=== PATIENT | female | born 1950 | race Caucasian/White ===

== ENCOUNTER 2020-06-04 14:49 | Observation (INO) ==
[2020-06-04] MEDS ORDERED: MECLIZINE 25 MG TABLET PO STA (18:29)
[2020-06-04] MEDS ORDERED: traMADol 50 MG TABLET PO STA (19:01)
[2020-06-04 19:08] LABS: Basophils # 0.1 10*3/uL (0.0-0.2); Basophils % 0.8 % (0.0-0.8); Eosinophils # 0.4 10*3/uL (0.0-0.87); Eosinophils % 4.9 % (0.00-10.9); Hematocrit 36.3 VOL% (35.7-47.0); Hemoglobin 11.9 GM/DL (12.0-16.0); Immature Granulocytes % 0.5 %; Immature Granulocytes Absolute 0.04 #; Lymphocytes % 23.4 % (21.3-54.2); Mean Corpuscular HGB Conc 32.8 GM/DL (32-36); Mean Corpuscular Volume 89.2 FL (87-102); Mean Platelet Volume 10.4 FL (9.6-12.0); Neutrophils % 62.4 % (38.7-73.9); Platelet Count 258 T/CUMM (130-400); Red Blood Count 4.07 MC/CUMM (3.8-5.5); Red Cell Distribution Width 14.5 % (9.3-17.3); White Blood Count 8.4 T/CUMM (4-12)
[2020-06-04 19:21] LABS: Alanine Aminotransferase 27 U/L (13-56); Albumin 3.6 G/DL (3.4-5.0); Alkaline Phosphatase 129 U/L (45-117); Aspartate Amino Transferase 33 U/L (0-37); Blood Urea Nitrogen 11 MG/DL (7-18); Calcium 9.3 MG/DL (8.5-10.1); Carbon Dioxide 28 MMOL/L (21-32); Estimated Glom Filtration Rate 90 ML/MIN; Glucose 120 MG/DL (74-106); Osmolality,Calculated 269.1 MOS/KG (273-304); Potassium 3.7 MMOL/L (3.5-5.1); Sodium 135 MMOL/L (136-145); Total Protein 7.6 G/DL (6.4-8.2); Troponin I < 0.015 NG/ML (0.00-0.045)
[2020-06-04 19:23] LABS: Barbiturates Screen,Urine Negative (Negative); Benzodiazepines Screen,Urine Negative (Negative); Cannabinoid Screen,Urine Negative (Negative); Opiate Screen,Urine Negative (Negative); Phencyclidine Screen,Urine Negative (Negative)
[2020-06-04 19:24] LABS: Bacteria,Urine Occasional /HPF (Few); Bilirubin,Urine Negative (Negative); Blood, Urine Small mg/dL (Negative); Glucose,Urine (UA) Negative (Negative); Ketones,Urine Negative (Negative); Nitrite,Urine Negative (Negative); Protein,Urine Negative; RBC,Urine 3 /HPF (0-4); Squamous Epithelial Cell,Urine Occasional /HPF (0-10); Urine Appearance Slightly Hazy (Clear); Urine Color Straw (Yellow); Urine Specific Gravity 1.004 (1.001-1.035); Urine Urobilinogen < 2.0 EU/DL (0.2-1.0)
[2020-06-04] MEDS ORDERED: cefTRIAXone 1,000 MG in SODIUM CHLORIDE 0.9% 100 ML IV STA (19:40)
[2020-06-04] MEDS ORDERED: hydrALAZINE 20 MG/1 ML VIAL IV STA (19:45)
[2020-06-04] MEDS ORDERED: HYDROmorphone 2 MG/1 ML VIAL IV STA (21:35)
[2020-06-04] MEDS ORDERED: DEXTROSE 50% 25 GM/50 ML VIAL IV PRN (21:49)
[2020-06-04] MEDS ORDERED: ONDANSETRON 4 MG/2 ML VIAL IV PRN (21:49)
[2020-06-04] MEDS ORDERED: GLUCAGON 1 MG VIAL IM PRN (21:49)
[2020-06-04] MEDS ORDERED: hydrALAZINE 20 MG/1 ML VIAL IV PRN (21:49)
[2020-06-04 23:53] LABS: Risk Ratio 5.08; Thyroid Stimulating Hormone 2.65 uIU/ml (0.358-3.74)
[2020-06-05] MEDS: carvediloL 25 MG TABLET PO SCH ×3 (01:58→21:34)
[2020-06-05] MEDS ORDERED: cloNIDine 0.1 MG TABLET PO PRN (08:02)
[2020-06-05] MEDS: INSULIN REGULAR 100 UNIT/ML SUBCUT SCH ×4 (09:08→21:34)
[2020-06-05] MEDS: OLMESARTAN 20 MG TABLET PO SCH (09:12)
[2020-06-05] MEDS ORDERED: busPIRone 5 MG TABLET PO SCH (12:30)
[2020-06-05] MEDS: HydrOXYzine PAMOATE 25 MG CAPSULE PO SCH ×3 (13:34→21:34)
[2020-06-05 14:07] LABS: Troponin I < 0.015 NG/ML (0.00-0.045)
[2020-06-05] MEDS ORDERED: ASPIRIN EC 81 MG TABLET PO SCH (21:00)
[2020-06-05] MEDS ORDERED: cefTRIAXone 1,000 MG in SODIUM CHLORIDE 0.9% 100 ML IV SCH (21:00)
[2020-06-06 05:16] LABS: Basophils # 0.1 10*3/uL (0.0-0.2); Basophils % 0.9 % (0.0-0.8); Eosinophils # 0.4 10*3/uL (0.0-0.87); Eosinophils % 5.4 % (0.00-10.9); Hematocrit 32.4 VOL% (35.7-47.0); Hemoglobin 10.7 GM/DL (12.0-16.0); Immature Granulocytes % 0.7 %; Immature Granulocytes Absolute 0.05 #; Lymphocytes % 28.7 % (21.3-54.2); Mean Corpuscular Volume 91.5 FL (87-102); Mean Platelet Volume 10.6 FL (9.6-12.0); Monocytes % 8.9 % (1.7-12.7); Neutrophils % 55.4 % (38.7-73.9); Platelet Count 217 T/CUMM (130-400); Red Blood Count 3.54 MC/CUMM (3.8-5.5); Red Cell Distribution Width 14.7 % (9.3-17.3); White Blood Count 6.8 T/CUMM (4-12)
[2020-06-06 05:30] LABS: Calcium 8.9 MG/DL (8.5-10.1); Osmolality,Calculated 278.7 MOS/KG (273-304); Potassium 3.9 MMOL/L (3.5-5.1)
[2020-06-06 07:59] VITALS: BP 143/48
[2020-06-06] MEDS: HydrOXYzine PAMOATE 25 MG CAPSULE PO SCH (08:56)
[2020-06-06] MEDS: carvediloL 25 MG TABLET PO SCH (08:56)
[2020-06-06] MEDS: OLMESARTAN 20 MG TABLET PO SCH (08:56)
[2020-06-06] MEDS: INSULIN REGULAR 100 UNIT/ML SUBCUT SCH (08:57)
== END 2020-06-06 11:19 | disposition home or self-care (01) ==
LOC: N.ED 14:49 → N.EDINP 14:49 → N.TELES 06-05 01:25
PROVIDERS: ADMIT Internal Medicine; ATTEND Internal Medicine